=== PATIENT | male | born 1970 | race Caucasian/White ===

== ENCOUNTER 2016-12-29 20:08 | Emergency (ER) | payer OTHER | END 2016-12-29 22:10 | disposition home or self-care (01) | LOC: ER 20:08 | DX: M54.5 Low back pain (principal); G89.29 Other chronic pain; L40.9 Psoriasis, unspecified; J44.9 Chronic obstructive pulmonary disease, unspecified; F17.210 Nicotine dependence, cigarettes, uncomplicated; Z79.899 Other long term (current) drug therapy; M51.36 Other intervertebral disc degeneration, lumbar region | CPT/HCPCS: 72100; 96372; 99283-25 ==